=== PATIENT | female | born 2000 | race Caucasian/White ===

== ENCOUNTER 2021-12-11 16:59 | Emergency (ER) | payer SELFPAY ==
[2021-12-11 18:05] LABS: ESTIMATED GFR 125 mL/min (>60)
== END 2021-12-11 19:15 | disposition home or self-care (01) ==
LOC: FB.ED 16:59
DX: R42 Dizziness and giddiness (principal); Z91.199 Patient's noncompliance with other medical treatment and regimen due to unspecified reason
CPT/HCPCS: 36415; 80053; 80307; 81001; 85025; 86140; 99284

== ENCOUNTER 2022-02-01 00:08 | Emergency (ER) | payer OTHER ==
[2022-02-01] MEDS ORDERED: Gabapentin 600 MG Tab PO STA (00:39)
[2022-02-01] MEDS ORDERED: Ketorolac 30 MG/ML SDV IM STA (00:39)
== END 2022-02-01 01:00 | disposition home or self-care (01) ==
LOC: FB.ED 00:08
DX: M54.10 Radiculopathy, site unspecified (principal); Z88.8 Allergy status to other drugs, medicaments and biological substances
CPT/HCPCS: 96372; 99283; A9270; J1885

== ENCOUNTER 2022-02-05 12:58 | Emergency (ER) | payer SELFPAY ==
[2022-02-05] MEDS ORDERED: predniSONE 20 MG Tab PO ONE (15:28)
== END 2022-02-05 15:51 | disposition home or self-care (01) ==
LOC: FB.ED 12:58
DX: M41.9 Scoliosis, unspecified (principal); K21.9 Gastro-esophageal reflux disease without esophagitis; E66.9 Obesity, unspecified; Z88.8 Allergy status to other drugs, medicaments and biological substances; Z86.16 Personal history of COVID-19; Z79.84 Long term (current) use of oral hypoglycemic drugs; Z68.43 Body mass index [BMI] 50.0-59.9, adult
CPT/HCPCS: 72125; 72128; 73521; 99284; J7512

== ENCOUNTER 2022-05-31 22:34 | Emergency (ER) | payer OTHER | END 2022-06-01 00:25 | disposition home or self-care (01) | LOC: FB.ED 22:34 | DX: F32.A Depression, unspecified (principal); K21.9 Gastro-esophageal reflux disease without esophagitis; E66.9 Obesity, unspecified; Z68.43 Body mass index [BMI] 50.0-59.9, adult; Z86.16 Personal history of COVID-19; Z88.8 Allergy status to other drugs, medicaments and biological substances; Z79.899 Other long term (current) drug therapy ==